=== PATIENT | female | born 1980 | race African-American/Black ===

== ENCOUNTER 2016-10-29 06:28 | Inpatient (IN) ==
[2016-10-27 13:23] LABS: Hematocrit 38.3 VOL% (35.7-47.0); Hemoglobin 12.6 GM/DL (12.0-16.0); Mean Corpuscular HGB Conc 32.9 GM/DL (32-36); Mean Corpuscular Hemoglobin 30 PG (27-34); Mean Corpuscular Volume 92.5 FL (87-102); Platelet Count 269 T/CUMM (130-400); Red Blood Count 4.14 MC/CUMM (3.8-5.5); Red Cell Distribution Width 12.9 % (9.3-17.3); White Blood Count 5.3 T/CUMM (4-12)
[2016-10-27 13:24] LABS: Basophils % 0.6 % (0.0-0.8); Eosinophils % 0.2 % (0.00-10.9); Immature Granulocytes % 0.2 %; Immature Granulocytes Absolute 0.01 #; Lymphocytes # 1.6 10*3/uL (1.4-4.0); Lymphocytes % 30.3 % (21.3-54.2); Mean Platelet Volume 10.2 FL (9.6-12.0); Monocytes # 0.4 10*3/uL (0.11-0.8); Neutrophils # 3.3 10*3/uL (1.4-7.4); Neutrophils % 61.7 % (38.7-73.9)
[2016-10-27 13:34] LABS: Apearance,Urine CLEAR (Clear); Bilirubin,Urine Negative (Negative); Blood, Urine Negative (Negative); Glucose,Urine (UA) Negative (Negative); Ketones,Urine 20 mg/dL (Negative); Mucus,Urine Occasional /LPF (Occasional); Nitrite,Urine Negative (Negative); Protein,Urine Negative; RBC,Urine 1 /HPF (0-4); Squamous Epithelial Cell,Urine Occasional /HPF (0-10); Urine Color Yellow (Yellow); Urine Specific Gravity 1.021 (1.001-1.035); Urine Urobilinogen < 2.0 EU/DL (0.2-1.0); WBC,Urine 1 /HPF (0-6)
[2016-10-27 13:55] LABS: Albumin 3.7 G/DL (3.4-5.0); Bilirubin,Total 0.7 MG/DL (0.2-1.0); Calcium 8.7 MG/DL (8.5-10.1); Osmolality,Calculated 279.1 MOS/KG (273-304); Potassium 3.6 MMOL/L (3.5-5.1); Risk Ratio 2.43; Total Protein 7.2 G/DL (6.4-8.3); VLDL CHOLESTEROL 13.8 MG/DL
--- NOTE | 2016-10-27 13:57 | EKG Report ---
Stationary ECG Study [facility] Test Date: 10/27/2016 1:56:51 PM Pat Name: MATTIE ALLRED Department: Room: Gender: F [employer] Superintendent: JAMES BRUNSON : 1980 Requested by: Lesia Brunson Order Number: [id number] Reading MD: MILLA GUTIÉRREZ Intervals Marshall Rate: 76 P: 78 WA: 128 QRS: 92 QRSD: 89 T: 56 QT: 321 QTc: 352 Interpretive Statements SINUS RHYTHM RIGHT AXIS DEVIATION Electronically Signed On 10-27-16 16:35:19 CDT by MILLA GUTIÉRREZ [email or web address]
--- NOTE | 2016-10-27 14:49 | XRay Report ---
XR chest 2V Date: 10/27/2016 1:48 PM History: Respiratory preoperative evaluation Comparison: None Technique: PA and lateral chest Findings: The heart is normal in size. The lungs are clear. Unremarkable mediastinum and osseous structures. Impression: No acute cardiopulmonary pathology identified. PROCEDURE INTERPRETED AT [facility] DEPARTMENT OF RADIOLOGY Final Report Signed by: Dr. Vanesa Johnson
[2016-10-28 07:32] LABS: HIV Antigen/Antibody Result Nonreactive (Nonreactive)
[~2016-10-29 06:28] MED LIST: AMPICILLIN/SULBACTAM 3,000 MG VIAL ONE; AMPICILLIN/SULBACTAM 3,000 MG in SODIUM CHLORIDE 0.9% 100 ML IV ONE; LACTATED RINGERS 1,000 ML IV SCH; SODIUM CHLORIDE 0.9% 100 ML IV ONE
[2016-10-29] MEDS ORDERED: PANTOPRAZOLE 40 MG TABLET PO ONE ×2 (07:08→07:13)
[2016-10-29] MEDS ORDERED: DIAZEPAM 5 MG TABLET PO ONE (07:08)
[2016-10-29] MEDS ORDERED: DIAZEPAM 5 MG TABLET ONE (07:13)
--- NOTE | 2016-10-29 08:21 | History and Physical Update ---
History and Physical Update - History and Physical H&P was reviewed, the patient examined and there: are no changes in the patients condition since last H&P was completed.
[2016-10-29] MEDS ORDERED: NEOSTIGMINE 10 MG/10 ML VIAL ONE (09:49)
[2016-10-29] MEDS ORDERED: KETOROLAC 30 MG/1 ML VIAL ONE (09:49)
[2016-10-29] MEDS ORDERED: PROPOFOL 200 MG/20 ML VIAL IV ONE (09:49)
[2016-10-29] MEDS ORDERED: LIDOCAINE 2% 5 ML VIAL ONE (09:49)
[2016-10-29] MEDS ORDERED: ONDANSETRON 4 MG/2 ML VIAL ONE (09:49)
[2016-10-29] MEDS ORDERED: GLYCOPYRROLATE 0.4 MG/2 ML VIAL ONE (09:49)
[2016-10-29] MEDS ORDERED: DEXAMETHASONE 10 MG/1 ML VIAL ONE (09:49)
[2016-10-29] MEDS ORDERED: ROCURONIUM 100 MG/10 ML VIAL IV ONE (09:49)
[2016-10-29 11:20] LABS: PCO2 Patient Temp Venous 31.9 MM HG; PH Patient Temp Venous 7.367; PO2 Patient Temp Venous 110.8 MM HG; Potassium Heart/CVR 3.9 MMOL/L (3.5-5.1); VBG Base Excess -6.5 MEQ/L (0-4); VBG HCO3 17.9 MEQ/L (24-28); VBG Oxygen Saturation 97.8 %; VBG PCO2 31.9 MMHG (41-51); VBG PH 7.367; VBG PO2 110.8 MMHG (17-40)
[2016-10-29 12:24] LABS: Apearance,Urine CLEAR (Clear); Bilirubin,Urine Negative (Negative); Blood, Urine Negative (Negative); Glucose,Urine (UA) Negative (Negative); Ketones,Urine 80 mg/dL (Negative); Mucus,Urine Occasional /LPF (Occasional); Nitrite,Urine Negative (Negative); Protein,Urine Negative; RBC,Urine 1 /HPF (0-4); Squamous Epithelial Cell,Urine Occasional /HPF (0-10); Urine Color Straw (Yellow); Urine Specific Gravity 1.009 (1.001-1.035); Urine Urobilinogen < 2.0 EU/DL (0.2-1.0); WBC,Urine <1 /HPF (0-6)
--- NOTE | 2016-10-29 12:38 | Anesthesia Post-Op ---
Anesthesia Post OP - Post Ansesthetic Evaluation Patient seen in post op: Yes Resp: within normal limits CV: within normal limits Mental: within normal limits Temp: within normal limits Snba-Ms-Afacadwmk: within normal limits Nausea and Vomiting: within normal limits Pain: within normal limits
[2016-10-29] MEDS ORDERED: SEVOFLURANE 1 UNIT/15 MINUTE INH ONE (12:42)
[2016-10-29] MEDS ORDERED: SODIUM CHLORIDE 0.9% 2,000 ML IV ONE (12:43)
[2016-10-29] MEDS ORDERED: fentaNYL 100 MCG/2 ML VIAL ONE (12:43)
[2016-10-29] MEDS ORDERED: HYDROmorphone 2 MG/1 ML VIAL ONE (12:43)
[2016-10-29] MEDS ORDERED: MIDAZOLAM 2 MG/2 ML VIAL ONE (12:43)
[2016-10-29] MEDS ORDERED: LACTATED RINGERS 2,000 ML IV ONE (12:43)
--- NOTE | 2016-10-29 12:59 | Operative Note ---
Date of procedure: 10/29/16 Procedure: Preoperative diagnosis: [] Dysfunctional uterine bleeding, severe pelvic pain, multiple uterine fibroids Postoperative diagnosis: Same, endometriosis Anesthesia: General. endotracheal anesthesia Estimated blood loss: [] 1999 Surgeon: Dr. Ricardo, Dr. Abarca assisting Findings: [] Multiple large uterine fibroids, endometriosis, severe pelvic adhesions, Procedure: Total abdominal hysterectomy, lysis of adhesions The risks benefits and indications and alternatives the procedure were reviewed with the patient and informed consent was obtained. The patient was taken to the operating room with IV running and a Escoto catheter in place. Patient was placed in supine position, given general anesthesia, prepped and draped in the usual sterile fashion. An abdominal incision was made approximately 2 cm above the symphysis pubis and extended sharply to the rectus fascia. The fascia was then excised bilaterally with the curved Babb scissors. And the muscles of the anterior abdominal wall were in the midline by sharp and blunt dissection. Peritoneum was grasped between 2 pickups, elevated and entered sharply with the scalpel. The pelvis was examined with the findings noted above. There was so many fibroids noted that the incision was carried up beyond the umbilicus. Using a towel clip individual fibroids were grasped incision was made on the surface of the fibroid and using blunt dissection the larger fibroids was removed in order to gain exposure. The bed of the fibroid was cauterized and several interrupted sutures was used to control the bleeding at the bed of the fibroid. After multiple fibroids were removed adequate exposure was then noted. At this time Dr. Abarca was able to dissect small areas of adhesions involving the uterus and also into the cul-de- sac. [] A tenaculum was placed on the cornea and used for retraction. The round ligaments on both sides were clamped, transected and suture ligated with 0 Vicryl the anterior leaf of the broad ligament was incised along the bladder was reflection to the midline from both sides. The bladder was then gently dissected off the lower uterine segment and the cervix with a sponge stick. The infundibulopelvic ligaments on both sides were then doubly clamped, transected and suture ligated with 0 Vicryl. Hemostasis was visualized. The uterine arteries were skeletonized bilaterally, clamped with Poly clamps, transected and suture ligated with 0 Vicryl and, hemostasis was assured. The uterosacral ligament were clamped on both sides, transected, and suture ligated in a similar fashion the cervix and uterus were amputated with cautery. The vaginal cuff angles were closed with [id number] stitches of 0 Vicryl and were transfixed to the ipsilateral cardinal and uterosacral ligaments. The remainder of the vaginal cuff was closed with a series of interrupted 0 Vicryl [id number] sutures hemostasis was assured. The ureters were identified bilaterally were well within normal limits the pelvis was irrigated copiously with warm normal saline. All laparotomy sponges and instruments were removed from the abdomen. The fascia was closed with running 0 Vicryl, and hemostasis was assured the skin was closed with vanesa. Sponges, lap, needle and instrument counts were correct -2. The patient was extubated in the operating room was taken to the PAC unit, awake and in stable condition.. 4 units of packed RBCs was transfused intraoperatively and clotting profiles was obtained prior to closure to determine whether or not cryoprecipitate plasma or platelets were going to be used. Surgeon / Physician: Lesia Ricardo Results - Labs CBC & BMP: 10/27/16 13:17 10/27/16 13:17 Discharge Plan - Discharge Medications No Action Lovastatin 10 mg PO BEDTIME Ferrous Sulfate 325 mg PO DIRECTED Ibuprofen Tab [Motrin Tab] 800 mg PO DIRECTED PRN PRN Reason: Pain - Follow Up or Referral - Forms/Instructions
[2016-10-29] MEDS ORDERED: IBUPROFEN 800 MG TABLET PO PRN (13:00)
[2016-10-29] MEDS ORDERED: BENZOCAINE/MENTHOL LOZENGE 18/BOX PO PRN (13:00)
[2016-10-29] MEDS ORDERED: ONDANSETRON 4 MG/2 ML VIAL IV PRN (13:00)
[2016-10-29] MEDS ORDERED: MAGNESIUM HYDROXIDE SUSP 30 ML UDCUP PO PRN (13:00)
[2016-10-29] MEDS ORDERED: ACETAMINOPHEN 325 MG TABLET PO PRN (13:00)
[2016-10-29] MEDS ORDERED: BISACODYL 10 MG SUPP RECTAL PRN (13:00)
[2016-10-29 13:03] LABS: Hematocrit 43.1 VOL% (35.7-47.0); Hemoglobin 14.3 GM/DL (12.0-16.0); Platelet Count 225 T/CUMM (130-400)
[2016-10-29 13:12] LABS: INR 1.2; PT Patient Result 12.7 SECS; Partial Thromboplastin Time 24.5 SECS (0-40)
[2016-10-29] MEDS ORDERED: NALOXONE 0.4 MG/ML VIAL IV PRN (13:45)
[2016-10-29] MEDS ORDERED: HYDROmorphone PCA 30 MG/30 ML SYRINGE IV SCH (13:45)
[2016-10-29] MEDS: LACTATED RINGERS 1,000 ML IV SCH ×2 (14:33→22:30)
--- NOTE | 2016-10-29 14:45 | Operative Note ---
Date of procedure: 10/29/16 Procedure: Procedure performed: Open lysis of adhesions Procedure in detail: Intraoperative consult was obtained by Dr. Ricardo for bowel intimately adherent to the posterior aspect of the uterus. Upon my arrival the patient had a midline laparotomy incision and Dr. Ricardo was removing uterine fibroids to improve closure. Once this debulking had occurred I was able to lift up the posterior aspect of the uterus identified some sigmoid and rectum adherent to it and sharply dissected these off of the posterior uterus. The adhesions did not involve the adnexal regions or vascular supply. Once completed Dr. Ricardo was then able to divide the vascular supply and just before complete removal and further dissection I reexamined the areas that were adherent and they all looked good with no serosal injury and no colotomy. This completed my portion of the procedure. Please see Dr. Ricardo his operative note for details regarding his portion of the operation. Surgeon / Physician: Cayetano Abarca Results - Labs CBC & BMP: 10/29/16 12:43 10/27/16 13:17 Discharge Plan - Discharge Medications No Action Lovastatin 10 mg PO BEDTIME Ferrous Sulfate 325 mg PO DIRECTED Ibuprofen Tab [Motrin Tab] 800 mg PO DIRECTED PRN PRN Reason: Pain - Follow Up or Referral - Forms/Instructions
--- NOTE | 2016-10-29 17:53 | XRay Report ---
Exam: XR abdomen 1V Date: 10/29/2016 5:14 PM Comparison: 06/08/2011 Indication: Nasogastric tube placement Technique:[Portable erect abdomen] Findings: The tip of the nasogastric tube projects in satisfactory position in the lateral fundus of the stomach. Impression: The tip of the nasogastric tube projects in satisfactory position in the lateral fundus of the stomach. Atelectasis at the lung bases with mild gaseous distention of the bowel which could be related possible mild ileus. PROCEDURE INTERPRETED AT [facility] DEPARTMENT OF RADIOLOGY Final Report Signed by: Dr. Vanesa Johnson
[2016-10-29] MEDS ORDERED: METOCLOPRAMIDE 10 MG/2 ML VIAL IV PRN (18:00)
[2016-10-29 18:27] LABS: Basophils % 0.1 % (0.0-0.8); Hematocrit 40.9 VOL% (35.7-47.0); Hemoglobin 14.1 GM/DL (12.0-16.0); Immature Granulocytes % 0.4 %; Immature Granulocytes Absolute 0.11 #; Lymphocytes # 0.6 10*3/uL (1.4-4.0); Lymphocytes % 2.4 % (21.3-54.2); Mean Corpuscular HGB Conc 34.5 GM/DL (32-36); Mean Corpuscular Hemoglobin 30 PG (27-34); Mean Corpuscular Volume 85.9 FL (87-102); Mean Platelet Volume 10.2 FL (9.6-12.0); Monocytes # 1.8 10*3/uL (0.11-0.8); Monocytes % 6.9 % (1.7-12.7); Neutrophils # 23.5 10*3/uL (1.4-7.4); Neutrophils % 90.2 % (38.7-73.9); Platelet Count 226 T/CUMM (130-400); Red Blood Count 4.76 MC/CUMM (3.8-5.5); Red Cell Distribution Width 14.8 % (9.3-17.3); White Blood Count 26.1 T/CUMM (4-12)
[2016-10-29 19:15] LABS: Band Neutrophils 6 % (0-10); Burr Cells Few; Lymphocytes 3 % (20-55); Platelet Estimate Normal; Poikilocytosis Slight; Segmented Neutrophils 89 % (50-85); Total Cells Counted 100
[2016-10-29] MEDS ORDERED: PHENOL 1.4% THROAT SPRAY 177 ML BOTTLE PO PRN (19:41)
[2016-10-30] MEDS: METOCLOPRAMIDE 10 MG/2 ML VIAL IV SCH ×3 (02:21→18:43)
[2016-10-30] MEDS ORDERED: FUROSEMIDE 20 MG/2 ML VIAL IV ONE (04:07)
[2016-10-30] MEDS: LACTATED RINGERS 1,000 ML IV SCH ×3 (05:25→19:10)
[2016-10-30 06:06] LABS: Basophils % 0.1 % (0.0-0.8); Hematocrit 34.1 VOL% (35.7-47.0); Hemoglobin 11.6 GM/DL (12.0-16.0); Immature Granulocytes % 0.4 %; Immature Granulocytes Absolute 0.07 #; Lymphocytes # 1.4 10*3/uL (1.4-4.0); Lymphocytes % 7.4 % (21.3-54.2); Mean Corpuscular Hemoglobin 29 PG (27-34); Mean Corpuscular Volume 86.1 FL (87-102); Mean Platelet Volume 10.6 FL (9.6-12.0); Monocytes # 2.4 10*3/uL (0.11-0.8); Monocytes % 13.1 % (1.7-12.7); Neutrophils # 14.5 10*3/uL (1.4-7.4); Platelet Count 215 T/CUMM (130-400); Red Blood Count 3.96 MC/CUMM (3.8-5.5); Red Cell Distribution Width 15.5 % (9.3-17.3); White Blood Count 18.4 T/CUMM (4-12)
[2016-10-30 06:27] LABS: Hypochromasia 1+; Microcytosis Slight
[2016-10-30 06:28] LABS: Ovalocytes Slight; Platelet Estimate Normal
--- NOTE | 2016-10-30 09:00 | Event Note ---
36-year-old -[place] female admitted by Dr. Ricardo with dysfunctional uterine bleeding, severe pelvic pain and multiple uterine fibroids. She was taken to the OR by Dr. Ricardo on 10/29/2016 for a total abdominal hysterectomy with lysis of adhesions. Dr. Abarca was consulted intraoperatively for open lysis of adhesions. The posterior aspect of the uterus was adherent to the sigmoid and rectum and Dr. Abarca sharply dissected these off the posterior uterus. There was no signs of serosal injury and no colotomy. Patient feels well this morning. There was minimal NG output and that was DC' d. Patient is tolerating sips of water and ice chips. Her pain is well controlled. She is afebrile and mildly tachy in the low 100s. Her abdomen is mildly distended with hypoactive bowel sounds, incision looks good. Assessment and plan-- ANAHI Escoto Ambulate Incentive spirometer every hour while awake Continue IV fluids until tolerating liquids Dr. Abarca will see and examine patient and further recommendations to follow
--- NOTE | 2016-10-30 12:29 | Pathology Report from [facility] ---
[facility] [place] # : [id number] PATIENT NAME : Analisa Allred ORDERING DR : ALIDA BRUNSON MD CLINICAL HX: Multiple uterine fibroids with DUB and pelvic pain POST-OP DX: Same SPECIMEN INFO: Uterus, cervix, bilateral tubes and ovaries GROSS DESCRIPTION: Received in formalin labeled ANALISA ALLRED consists of 381 gm uterus with unattached cervix measuring 12.5 x 11.0 x 7.5 cm. The serosa is red cain with adhesions present. The cervix measures 2.5 cm. The external cervical os measures 0.5 cm. The endocervical canal is cain and patent. The endometrial cavity is hemorrhagic with a mucosal thickness of 0.1 cm. Sectioning reveals multiple submucosal intramural nodules measuring up to 5.0 cm. Received separately in the specimen container are multiple firm nodules weighing 489 gms in aggregate and measuring from 2.0 x 1.9 cm to 7.0 x 6.5 cm. An ovary is received measuring 3.0 x 2.5 cm. Sectioning reveals two hemorrhagic corpus luteum measuring up to 1.0 cm. The adjacent fallopian tube is fimbriated and measures 4.5 x 0.8 cm with two paratubal cysts noted measuring up to 3.0 cm. A portion of the 2nd tube is seen which measures 6.0 x 0.7 cm and is unfimbriated. An attached portion of shaggy hemorrhagic tissue is present measuring 2.3 x 2.5 cm which possibly represents a ruptured ovary. Sections submitted A-Cervix, B&C-Endomyometrium, D-Serosal adhesions & nodules, E-1st ovary & tube, F-2nd tube & possible 2nd ovary. DIAGNOSIS FOR ANALISA ALLRED: UTERUS, CERVIX, BILATERAL TUBES & OVARIES: Mild chronic cervicitis. Proliferative endometrium. Superficial adenomyosis. Leiomyomas. Serosal fibrous adhesions. 1st ovary with luteal cysts; fallopian tube. 2nd ovary with simple cysts and hemosiderophages; fallopian tube. COLLECTED DATE: 10/29/2016 [facility] REPORT DATE: 10/30/2016 ELECTRONICALLY SIGNED BY: Felix Contreras M.D. 10/30/2016 - 9:49:21 [facility]
--- NOTE | 2016-10-30 13:44 | Progress Note ---
Family Medicine PN Sub Interval history: Postop day #1 Status post total abdominal hysterectomy bilateral salpingo-oophorectomy lysis of adhesions Patient is doing well NG tube was removed bowel sounds are still quiet will delay feeding at this time Incision sites intact Output is been excellent Extremities well with no limits and neurologic grossly intact Exam (Progress Note) - Constitutional Vitals: Period Temp Pulse Resp BP Sys/Mota Pulse Ox Last 24 Hr 97.7 F-99.3 F 97-120 18-20 97-141/66-92 95-98 Results - Labs CBC & BMP: 10/30/16 05:29 10/27/16 13:17 Quality Measures - VTE Contraindication to Pharmacological VTE Prophylaxis: Clinical assessment deems Pt at low risk, no prophalaxis needed
[2016-10-30] MEDS ORDERED: SIMETHICONE CHEW 80 MG TABLET PO PRN (20:42)
[2016-10-31] MEDS: METOCLOPRAMIDE 10 MG/2 ML VIAL IV SCH ×3 (02:26→17:57)
--- NOTE | 2016-10-31 10:06 | Event Note ---
36-year-old -Serbian female admitted by Dr. Ricardo with dysfunctional uterine bleeding, severe pelvic pain and multiple uterine fibroids. She was taken to the OR by Dr. Ricardo on 10/29/2016 for a total abdominal hysterectomy and bilateral salping-oophorectomy with lysis of adhesions. Dr. Cole was consulted intraoperatively for open lysis of adhesions. The posterior aspect of the uterus was adherent to the sigmoid and rectum and Dr. Cole sharply dissected these off the posterior uterus. There was no signs of serosal injury and no colotomy. patient feels better this morning. she is tolerating her sips and chips and is moving around in the room more and sitting in the chair. she is not passing gas yet and is burping some. wbc coming down to 18.4, and HH down to 11.6/34.1. She ran 100.6 fever last night but afebrile so far this am. her HR is 102-120. Her abdomen is soft and appropriately tender. her incision looks good. Assessment and plan-- cxr,ua,bc start zosyn and flagyl ambulate halls Incentive spirometer every hour while awake bolus ivf for tachycardia recheck labs in morning and follow HH for any internal bleeding dr nelson has seen and examined pt for dr cole who is out
[2016-10-31] MEDS ORDERED: SODIUM CHLORIDE 0.9% 1,000 ML IV ONE (10:14)
[2016-10-31] MEDS: metroNIDAZOLE INJ 500 MG in PREMIX 1 EACH IV SCH ×2 (10:36→16:46)
--- NOTE | 2016-10-31 10:51 | XRay Report ---
XR chest 2V Indication: Postop fever. Chest 2 views: Comparison 10/27/2016. The heart size and mediastinal contour are normal. The lungs and pleural spaces are clear. Bones are unremarkable. Tiny sliver of pneumoperitoneum is present left upper quadrant. Impression: Negative chest. Tiny sliver of pneumoperitoneum left upper quadrant, anticipated with recent myomectomy. PROCEDURE INTERPRETED AT [facility] DEPARTMENT OF RADIOLOGY Final Report Signed by: Jose Ascencio M.D.
--- NOTE | 2016-10-31 11:17 | Progress Note ---
Family Medicine PN Sub Interval history: Postoperative day #2 status post JOSE/BSO, lysis of adhesions. Patient ran a low -grade temperature last evening, has been tachycardic since her surgery most likely from the increased blood volume could be because a lack of mobility, pain , or possible infection. General surgery initiated a workup, agree with the present management. Patient looks great she is ambulating well belching no flatus at this moment, bowel sounds are present. We will continue to observe encourage the incentive spirometer, increased activity, and will await for further results. Exam (Progress Note) - Constitutional Vitals: Period Temp Pulse Resp BP Sys/Mota Pulse Ox Last 24 Hr 98.3 F-100.6 F 102-120 16-20 115-130/64-80 96-100 Results - Labs CBC & BMP: 10/30/16 05:29 10/27/16 13:17 Quality Measures - VTE Contraindication to Pharmacological VTE Prophylaxis: Clinical assessment deems Pt at low risk, no prophalaxis needed
[2016-10-31] MEDS: PIPERACILLIN/TAZOBACTAM 3,375 MG in SODIUM CHLORIDE 0.9% 100 ML IV SCH ×2 (13:00→20:39)
[2016-10-31 13:29] LABS: Apearance,Urine CLEAR (Clear); Bilirubin,Urine Negative (Negative); Blood, Urine Moderate mg/dL (Negative); Glucose,Urine (UA) Negative (Negative); Ketones,Urine 80 mg/dL (Negative); Mucus,Urine Occasional /LPF (Occasional); Nitrite,Urine Negative (Negative); Protein,Urine Negative; Squamous Epithelial Cell,Urine Occasional /HPF (0-10); Urine Color Colorless (Yellow); Urine Specific Gravity 1.004 (1.001-1.035); Urine Urobilinogen < 2.0 EU/DL (0.2-1.0); WBC,Urine <1 /HPF (0-6)
[2016-10-31] MEDS: DOCUSATE SODIUM 100 MG CAPSULE PO PRN (20:44)
[2016-11-01] MEDS: metroNIDAZOLE INJ 500 MG in PREMIX 1 EACH IV SCH ×2 (00:17→05:23)
[2016-11-01] MEDS: LACTATED RINGERS 1,000 ML IV SCH ×3 (00:17→03:49)
[2016-11-01] MEDS: METOCLOPRAMIDE 10 MG/2 ML VIAL IV SCH (02:34)
[2016-11-01] MEDS: PIPERACILLIN/TAZOBACTAM 3,375 MG in SODIUM CHLORIDE 0.9% 100 ML IV SCH (03:49)
[2016-11-01 06:37] LABS: Basophils % 0.3 % (0.0-0.8); Eosinophils # 0.1 10*3/uL (0.0-0.87); Eosinophils % 0.8 % (0.00-10.9); Hematocrit 28.5 VOL% (35.7-47.0); Hemoglobin 9.3 GM/DL (12.0-16.0); Immature Granulocytes % 0.3 %; Immature Granulocytes Absolute 0.02 #; Lymphocytes # 1.5 10*3/uL (1.4-4.0); Lymphocytes % 20.9 % (21.3-54.2); Mean Corpuscular HGB Conc 32.6 GM/DL (32-36); Mean Corpuscular Hemoglobin 29 PG (27-34); Mean Corpuscular Volume 87.4 FL (87-102); Mean Platelet Volume 10.2 FL (9.6-12.0); Monocytes # 0.7 10*3/uL (0.11-0.8); Monocytes % 9.5 % (1.7-12.7); Neutrophils # 4.9 10*3/uL (1.4-7.4); Neutrophils % 68.2 % (38.7-73.9); Platelet Count 178 T/CUMM (130-400); Red Blood Count 3.26 MC/CUMM (3.8-5.5); Red Cell Distribution Width 14.8 % (9.3-17.3); White Blood Count 7.2 T/CUMM (4-12)
[2016-11-01 07:03] LABS: Osmolality,Calculated 288.4 MOS/KG (273-304); Potassium 3.3 MMOL/L (3.5-5.1)
[2016-11-01] MEDS: DOCUSATE SODIUM 100 MG CAPSULE PO PRN (08:22)
--- NOTE | 2016-11-01 10:00 | OB/GYN Progress Note ---
Assessment and Plan (1) S/P JOSE-BSO Status: Acute Assessment and plan: POD#3 s/p JOSE BSO with adhesiolysis Now passing flatus and BM x 2 Diet advance with lunch Likely home tomorrow Current Visit: Yes [employer] - PN: Subj Interval history: Feels good this morning. BM x 2. Exam [employer] DES[employer]ER - Constitutional Vitals: Vital Signs Temp Pulse Resp BP Pulse Ox 11/01/16 07:32 98.1 F 98 H 18 116/67 99 11/01/16 04:00 97.7 F 81 20 102/62 99 11/01/16 02:00 18 11/01/16 00:00 98.1 F 91 H 20 114/66 98 10/31/16 22:00 20 10/31/16 20:00 97.9 F 122 H 20 122/88 99 10/31/16 15:41 99.5 F 108 H 18 129/78 99 10/31/16 11:39 98.1 F 102 H 20 121/77 100 General appearance: no acute distress - Head Head exam: Present: normal inspection, normocephalic - Eye Eye exam: Present: EOMI Pupils: Present: HANANE - GI/Abdominal GI/Abdominal exam: Present: soft, other (Incision intact) Results - Labs CBC & BMP: 11/01/16 06:17 11/01/16 06:17
--- NOTE | 2016-11-01 11:24 | Event Note ---
11/01/2016. Patient is much better today has had a couple bowel movements. Tolerating liquids and no nausea at this time. Abdomen is soft bowel sounds are active. She is being advanced to some solid food and certain if she tolerates that I think she can be discharged tomorrow.
[2016-11-01 11:40] VITALS: BP 127/83
--- NOTE | 2016-11-01 13:38 | Discharge Summary ---
Hospital Course - Hospital Course Hospital Course: 36-year-old female 0 who presents with multiple uterine fibroids, severe pelvic pain, and dysfunction bleeding. This patient underwent a JOSE and BSO. Because of the previous history of a myomectomy general surgery was advised to assist in the process of procedure. There was extensive adhesion lysis, there was also endometriosis, and all the fibers were taken out in partials. She postoperatively she retained an NG tube. Was removed on first day postoperatively. She passed gas multiple bowel movements spiked a low- grade temperature on one occasion and second postoperative day. Workup was negative. Patient will be discharged and follow-up our office in approximately 5 days for staple removal Specialty Discharge - Follow Up or Referrals Follow up with: Lesia Ricardo MD [Physician] - Discharge Plan - Discharge Data Condition at Discharge: Stable Discharge Diet: advance to your usual diet Activity: resume usual activities as tolerated Hygiene: no restrictions Weight Bearing at Discharge: full weight bearing Contact your physician if you experience:: fever over 101, Shortness of breath, Bleeding - Discharge Medications New Ibuprofen Tab [Motrin Tab] 800 mg PO Q8H PRN #60 tablet PRN Reason: Pain Mild To Moderate (1-7) HYDROcodone/ACETAMIN 5-325 [Sumner 5-325] 2 tablet PO Q4H PRN #45 tablet PRN Reason: Pain Moderate (4-7) No Action Lovastatin 10 mg PO BEDTIME Ferrous Sulfate 325 mg PO DIRECTED Ibuprofen Tab [Motrin Tab] 800 mg PO DIRECTED PRN PRN Reason: Pain - Follow Up or Referral Follow Up: Lesia Ricardo MD [Physician] - - Forms/Instructions Instructions: Abdominal Hysterectomy (DC), Lysis of Abdominal Adhesions (DC) Exam - Constitutional Vitals: Period Temp Pulse Resp BP Sys/Mota Pulse Ox Last 24 Hr 97.1 F-99.5 F 81-122 18-20 102-129/62-88 98-99 Discharge Results Procedures and tests throughout hospitalization: Pending Orders 10/29/16 06:39 Red Blood Cells Leuko Red Stat Type and Screen Stat 10/31/16 10:33 Blood Culture Stat Labs on day of discharge: Labs from last 24 hours 11/01/16 11/01/16 06:17 06:17 WBC 7.2 D RBC 3.26 L Hgb 9.3 L D Hct 28.5 L MCV 87.4 MCH 29 MCHC 32.6 RDW 14.8 Plt Count 178 MPV 10.2 Neut % (Auto) 68.2 Lymph % (Auto) 20.9 L Alexander % (Auto) 9.5 Eos % (Auto) 0.8 Baso % (Auto) 0.3 Neut # (Auto) 4.9 Lymph # (Auto) 1.5 Alexander # (Auto) 0.7 Eos # (Auto) 0.1 Baso # (Auto) 0.0 Immature Gran % 0.3 Nucleated RBC % 0.0 Immature Gran # 0.02 Nucleated RBCs # 0.00 Sodium 147 H Potassium 3.3 L Chloride 113 H Carbon Dioxide 27 Anion Gap 10.3 BUN 4 L Creatinine 0.60 GFR Calculation 139 BUN/Creatinine Ratio 6.00 Glucose 94 Calculated Osmolality 288.4 Calcium 8.0 L Magnesium 2.0 Preliminary micro results at discharge 10/31/16 10:33 Blood Culture - Preliminary Blood No growth at 1 day 10/31/16 10:33 Blood Culture - Preliminary Blood No growth at 1 day DS: Provider Date of admission: 10/29/16 06:28 Primary care physician: Daniel Aguilar, Attending physician on admission: Lesia Ricardo MD Discharging clinician: Lesia Ricardo MD
== END 2016-11-01 15:00 | disposition home or self-care (01) | DRG 743 ==
LOC: N.SDSINP 06:28 → N.OB 13:45
PROVIDERS: ADMIT Obstetrics & Gynecology; ATTEND Obstetrics & Gynecology